=== PATIENT | male | born 1985 | race African-American/Black ===

== ENCOUNTER 2016-12-05 03:29 | Emergency (ER) | payer SELFPAY ==
[~2016-12-05] VITALS: Ht 182.9 cm; Wt 100.0 kg
[2016-12-05 03:32] VITALS: BP 131/78
== END 2016-12-05 04:35 | disposition left against medical advice (07) ==
LOC: ER 03:29
DX: Z53.21 Procedure and treatment not carried out due to patient leaving prior to being seen by health care provider (principal)